=== PATIENT | male | born 1960 | race Caucasian/White ===

== ENCOUNTER 2021-03-31 14:39 | Emergency (ER) | payer OTHER, SELFPAY ==
--- NOTE | 2021-03-31 14:42 | ED.NAVMDI ---
HPI - Nausea/Vomiting/Diarrhea General Chief complaint: Nausea/Vomiting/Diarrhea Stated complaint: Diarrhea Time Seen by Provider: 03/31/21 14:42 Source: patient and RN notes reviewed History of Present Illness HPI Narrative: Patient is 61-year-old male who presents the urgent care with complaints of diarrhea that started this morning. Patient states that he drank out of the community water jug yesterday at work and believes that is what made him sick. Patient states that prior to the diarrhea starting, he ate a cheeseburger but denies of any recent change in diet. Patient denies of any known fevers, nausea, vomiting. States that he has intermittent abdominal cramps but currently denies of any abdominal pain. Denies any history of IBS, colitis or diverticulitis. Denies of any blood in the stool. Patient states that he just needs a note for work. States that he has taken Pepto [id number] for his symptoms without much relief. No other acute complaints. No acute distress noted. Patient aware of the plan of care. Some parts of this dictation were generated by voice recognition software and may contain typographical and/or grammatical inaccuracies. Related Data Home Medications Medication Instructions Recorded Confirmed amlodipine 5 mg PO DAILY 03/31/21 03/31/21 atorvastatin 20 mg PO DAILY 03/31/21 03/31/21 celecoxib 200 mg PO DAILY 03/31/21 03/31/21 Allergies Allergy/AdvReac Type Severity Reaction Status Date / Time No Known Allergies Allergy Verified 03/31/21 14:55 Review of Systems Review of Systems: CONSTITUTIONAL: Denies fever, chills, or sweats. EYES: Denies visual changes, redness, or discharge. ENT: Denies rhinorrhea, congestion, sore throat, or otalgia. CARDIOVASCULAR: Denies chest pain, palpitations, or edema. RESPIRATORY: Denies cough or dyspnea. GASTROINTESTINAL: Reports of diarrhea with intermittent abdominal cramping GENITOURINARY: Denies dysuria or hematuria. SKIN: Denies rash or itching. MUSCULOSKELETAL: Denies back pain, joint pain, or myalgia. NEUROLOGIC: Denies headache, numbness, or weakness. All other systems reviewed are negative, except as documented in HPI. PMF Social History Social History Gender identity (if verbalized by the patient): Female Comments At the time of my signature, I reviewed and agree with the nursing past medical, surgical, social, and family history. There is no relevant family history pertinent to the patient complaint. Exam Narrative: GENERAL: This is a well-nourished, well-developed patient, in no apparent distress. HEAD: normocephalic, atraumatic. EYES: PERRL. Sclera clear/white. Vision is grossly intact. EARS: External ears normal NOSE: External nose normal with no obvious nasal discharge, nares without redness, no rhinorrhea. THROAT: Mucous membranes moist NECK: Neck supple CARDIOVASCULAR: Regular rate and rhythm without murmurs, gallops, or rubs. RESPIRATORY: Clear to auscultation. Breath sounds equal bilaterally. No wheezes, rales, or rhonchi. GASTROINTESTINAL: Nontender, nondistended, hyperactive bowel sounds. No rebound tenderness SKIN: warm, intact with no suspicious lesions or rash, good texture and turgor. NEURO: awake, alert, and oriented to person, place and time. There were no obvious focal neurologic abnormalities. EXTREMITIES: No clubbing, cyanosis, or edema. Course Vital Signs Vital signs: Vital Signs Temperature 100.2 F H 03/31/21 14:57 Pulse Rate 82 03/31/21 14:57 Respiratory Rate 16 03/31/21 14:57 Blood Pressure 130/64 03/31/21 14:57 Pulse Oximetry 98 03/31/21 14:57 Temperature 100.2 F H 03/31/21 14:57 Pulse Rate 82 03/31/21 14:57 Respiratory Rate 16 03/31/21 14:57 Blood Pressure 130/64 03/31/21 14:57 Pulse Oximetry 98 03/31/21 14:57 Reviewed MDM - Nausea/Vomiting/Diarrhea MDM Narrative Medical decision making narrative: Advised the patient to continue using [id number] medications
[2021-03-31 14:57] VITALS: BP 130/64; PULSE 82; RESP 16; TEMP 37.9; O2SAT 98
== END 2021-03-31 15:14 | disposition home or self-care (01) ==
PROVIDERS: Emergency Provider Nurse Practitioner Family
DX: R19.7 Diarrhea, unspecified (principal); E78.00 Pure hypercholesterolemia, unspecified; I10 Essential (primary) hypertension; M19.90 Unspecified osteoarthritis, unspecified site
CPT/HCPCS: 99202; G0463